=== PATIENT | female | born 1985 | race Caucasian/White ===

== ENCOUNTER → 2017-02-09 | Outpatient (CLI) | payer OTHER ==
[~2017-02-09] MED LIST: ACET50TA PO; IBUP600T26 PO; LANSOIN TOP; MOM30SS PO; PRENCAP PO; ZOLO50TA PO
--- NOTE | 2017-02-09 17:58 | REP ---
Clinical: Trauma. Technique: AP, lateral, bilateral oblique views left foot . Findings: The osseous structures and joint spaces are intact and normal. There is no evidence for acute fracture or dislocation. Surrounding soft tissues are unremarkable. No subcutaneous emphysema or radiodense foreign body. Impression: Normal examination. No acute fracture or dislocation. Signed by Jose Guadalupe Tyson MD 02/09/2017 05:50 P
--- NOTE | 2017-02-09 17:59 | REP ---
Clinical: Trauma. Injury . Technique: AP, lateral, bilateral oblique views left ankle . Findings: No acute fracture or dislocation. Skeletal structures and joint spaces are intact and normal. Ankle mortise appears stable. No subcutaneous emphysema or radiodense foreign body. Impression: Normal left ankle radiograph series. No acute fracture or dislocation. Signed by Jose Guadalupe Tyson MD 02/09/2017 05:51 P
== END ==
LOC: M RAD 17:14
PROVIDERS: ATTEND Physician Assistant Medical
DX: M25.572 Pain in left ankle and joints of left foot (principal)

== ENCOUNTER → 2017-04-19 | Outpatient (CLI) | payer OTHER, SELFPAY | LOC: M LAB 15:23 | PROVIDERS: ATTEND Advanced Practice Midwife | DX: O20.0 Threatened abortion (principal) | CPT/HCPCS: 36415; 84702; 86850; 86900; 86901; J2790 ==

== ENCOUNTER → 2018-03-20 | Outpatient (CLI) | payer OTHER | LOC: M RAD 14:31 | DX: S99.912A Unspecified injury of left ankle, initial encounter (principal); X58.XXXA Exposure to other specified factors, initial encounter; Y92.9 Unspecified place or not applicable | CPT/HCPCS: 73610 ==

== ENCOUNTER → 2018-03-24 | Outpatient (REF) | payer OTHER | LOC: M SFHCLERA 19:13 | DX: N30.01 Acute cystitis with hematuria (principal) ==

== ENCOUNTER → 2018-05-03 | Outpatient (CLI) | payer OTHER | LOC: M RAD 14:15 | DX: Z34.82 Encounter for supervision of other normal pregnancy, second trimester (principal); Z3A.11 11 weeks gestation of pregnancy | CPT/HCPCS: 76801 ==

== ENCOUNTER → 2018-06-19 | Outpatient (CLI) | payer OTHER | LOC: M RAD 13:25 | DX: Z36.89 Encounter for other specified antenatal screening (principal); Z3A.18 18 weeks gestation of pregnancy | CPT/HCPCS: 76811 ==

== ENCOUNTER → 2018-08-30 | Outpatient (CLI) | payer OTHER ==
[2018-08-30 13:15] LABS: BASO # 0.1 10^3/uL (0.0-0.2); BASO % 0.7 % (0.0-1.0); EOS # 0.3 10^3/uL (0.0-0.50); EOS % 2.6 % (0.0-3.0); HEMATOCRIT 24.5 % (36.0-47.0); HEMOGLOBIN 7.3 g/dl (12.0-15.5); IMMATURE GRANULOCYTE # 0.1 10^3/uL (0-0); IMMATURE GRANULOCYTE % 0.5 % (0-3.0); LYMPH # 1.2 10^3/uL (1.5-4.5); LYMPH % 11.4 % (24.0-44.0); MEAN CORPUSCULAR HEMOGLOBIN 21.4 pg (27.0-33.0); MEAN CORPUSCULAR HGB CONC 29.8 g/dl (32.0-36.5); MEAN CORPUSCULAR VOLUME 71.8 fl (80.0-96.0); MONO # 0.7 10^3/uL (0.0-0.8); MONO % 7.3 % (0.0-5.0); NEUTROPHILS # 7.9 10^3/uL (1.8-7.7); NEUTROPHILS % 77.5 % (36.0-66.0); PLATELET COUNT, AUTOMATED 157 10^3/uL (150-450); RED BLOOD COUNT 3.41 10^6/uL (4.00-5.40); RED CELL DISTRIBUTION WIDTH 15.9 % (11.5-14.5); WHITE BLOOD COUNT 10.2 10^3/uL (4.0-10.0)
[2018-08-30 13:33] LABS: GLUCOSE CHALLENGE TEST 1 HOUR 123 MG/DL (LESS THAN 140)
== END ==
LOC: M LAB 11:07
DX: Z34.82 Encounter for supervision of other normal pregnancy, second trimester (principal); Z3A.00 Weeks of gestation of pregnancy not specified
CPT/HCPCS: 82950

== ENCOUNTER 2018-09-24 00:15 | Outpatient (CLI) | payer OTHER ==
[2018-09-24] MEDS: LR 1,000 ML IV (01:15)
[2018-09-24 01:20] LABS: HEMATOCRIT 23.2 % (36.0-47.0); MEAN CORPUSCULAR HEMOGLOBIN 19.5 pg (27.0-33.0); MEAN CORPUSCULAR HGB CONC 28.9 g/dl (32.0-36.5); MEAN CORPUSCULAR VOLUME 67.6 fl (80.0-96.0); PLATELET COUNT, AUTOMATED 162 10^3/uL (150-450); RED BLOOD COUNT 3.43 10^6/uL (4.00-5.40); RED CELL DISTRIBUTION WIDTH 16.4 % (11.5-14.5); WHITE BLOOD COUNT 12.2 10^3/uL (4.0-10.0)
[2018-09-24 01:30] LABS: HEMOGLOBIN 6.7 g/dl (12.0-15.5)
[2018-09-24 01:59] LABS: APPEARANCE, URINE HAZY (CLEAR); BACTERIA, URINE AUTO NEGATIVE (NEGATIVE); BILIRUBIN, URINE AUTO NEGATIVE (NEGATIVE); BLOOD, URINE BLOOD NEGATIVE (NEGATIVE); COLOR, URINE YELLOW (YELLOW); GLUCOSE, URINE (UA) AUTO NEGATIVE (NEGATIVE); KETONE, URINE AUTO 1+ mg/dL (NEGATIVE); LEUKOCYTE ESTERASE, URINE AUTO TRACE (NEGATIVE); MUCUS, URINE SMALL (NEGATIVE); NITRITE, URINE AUTO POSITIVE (NEGATIVE); PROTEIN, URINE AUTO NEGATIVE (NEGATIVE); RBC, URINE AUTO 2 /HPF (0-3); SPECIFIC GRAVITY URINE AUTO 1.013 (1.002-1.035); SQUAMOUS EPITHELIAL CELL UR AU 7 /HPF (0-6); WBC, URINE AUTO 16 /HPF (0-3)
[2018-09-24] MEDS: metroNIDAZOLE (FLAGYL) 500 MG TAB PO (02:23)
[2018-09-24] MEDS: FLUCONAZOLE 50MG TABLET PO (02:23)
== END 2018-09-24 02:55 | disposition home or self-care (01) ==
LOC: M LDO 00:15
DX: O47.03 False labor before 37 completed weeks of gestation, third trimester (principal); O99.019 Anemia complicating pregnancy, unspecified trimester; O23.593 Infection of other part of genital tract in pregnancy, third trimester; O23.43 Unspecified infection of urinary tract in pregnancy, third trimester; Z3A.31 31 weeks gestation of pregnancy
CPT/HCPCS: 59025

== ENCOUNTER 2018-10-16 04:39 | Outpatient (CLI) | payer OTHER | END 2018-10-16 09:22 | disposition home or self-care (01) | LOC: M LDO 04:39 | DX: O26.893 Other specified pregnancy related conditions, third trimester (principal); Z3A.35 35 weeks gestation of pregnancy | CPT/HCPCS: 76815 ==

== ENCOUNTER 2018-11-09 11:48 | Emergency (ER) | payer OTHER ==
[~2018-11-09] VITALS: Ht 162.6 cm; Wt 71.8 kg
[2018-11-09 11:48] VITALS: BP 137/77
[~2018-11-09 11:48] MED LIST changes: +FERR325T3 PO; +MACR100C43 PO; +METR1TAB66 PO; +STOO100C PO
[2018-11-09] MEDS ORDERED: AZEL1SPR3 NARES (12:21)
== END 2018-11-09 12:44 | disposition left against medical advice (07) ==
LOC: M ED 11:48
DX: O99.89 Other specified diseases and conditions complicating pregnancy, childbirth and the puerperium (principal); H92.02 Otalgia, left ear; O62.0 Primary inadequate contractions; O99.333 Smoking (tobacco) complicating pregnancy, third trimester; F17.200 Nicotine dependence, unspecified, uncomplicated; Z88.0 Allergy status to penicillin; Z91.040 Latex allergy status; Z3A.38 38 weeks gestation of pregnancy; Z79.899 Other long term (current) drug therapy

== ENCOUNTER → 2018-11-26 | Outpatient (REF) | payer OTHER ==
[~2018-11-26] MED LIST changes: +AZEL1SPR3 NARES; +METR-201 PO; -METR1TAB66 PO
== END ==
LOC: M LAB REF 12:11
PROVIDERS: ATTEND Physician Assistant
DX: J02.9 Acute pharyngitis, unspecified (principal)

== ENCOUNTER 2020-11-14 16:40 | Outpatient (CLI) | payer OTHER, MEDICAID ==
[~2020-11-14] VITALS: Ht 162.6 cm; Wt 67.5 kg
[~2020-11-14 16:40] MED LIST changes: -ACET50TA PO; +MAPA500T17 PO; -METR-201 PO; +METR-265 PO; +MM S100C PO; -STOO100C PO
[2020-11-14 17:03] VITALS: BP 127/70
[2020-11-14 18:22] VITALS: BP 126/70
[2020-11-14] MEDS ORDERED: metroNIDAZOLE (FLAGYL) 500MG TABLET PO ONE (19:45)
[2020-11-14] MEDS ORDERED: DIFL150T PO (19:46)
[2020-11-14] MEDS ORDERED: METR-265 PO (19:46)
--- NOTE | 2020-11-14 20:12 | IPNPDOC ---
Text Note Date of Service The patient was seen on 11/14/20. NOTE Outpatient Subjective: Carmencita is a 35 y/o by 2nd trimester ultrasound, PATY 12/01/20. She started care at [facility] in the 2nd trimester at 20.1 weeks. She has had an uncomplicated . She presented to Labor and Delivery today with a c/o a gush of fluid this evening and then no further leaking of fluid. She reports the fluid to be milky white in color, no odor. Denies vaginal itching, burning. Reports having BH contractions frequently but nothing painful or out of her normal. Denies vaginal bleeding, and reports active movement. Obstetrical/[employer] hx.: frequent yeast infections, x4, SAB x2, chlamydia in 2018 Medical hx: Anxiety, depression (suicide attempt in 2008), asthma, alcoholism (sober for 7.5 years), GERD, gastric ulcer Surgical hx: Wrist Reset 1997 Family hx: Father and Mother: alcoholism, COPD, HTN, Cirrhosis, Depression, Anxiety Social hx: Single, current smoker, denies current alcohol and drug use Objective: General: Alert and oriented x3. Respiratory: Regular rate, no accessory muscle use. Abdomen: Gravid, soft, non tender, not distended. Fetus: 135bpm baseline, moderate variability, positive 15x15 accelerations, no decelerations, Category 1 Uterus: Contractions every 3-15 minutes, lasting 50-70 seconds, mild on palpation, resting tone soft Pelvic: Speculum exam revealed frothy white discharge in vaginal vault, well rugated vagina, Cervical os pink and no fluid appearing to be leaking from external os. Nitrazine negative, whiff test positive, positive clue cells seen on slide. No yeast buds or hyphae. No trichomonads. No ferning seen. SVE: Closed/Thick/High by GRAEME Arriola Bedside Ultrasound: AMMY 15.1, active movement seen, anterior fundal placenta, cephalic presentation Extremities: No edema. Negative calf tenderness. Assessment: Bacterial Vaginosis, IUP at 37.4weeks, Not in active labor, No SROM. Plan: NST Bedside U/S: see results above Flagyl 500mg BID for 7 days, starting with 1 dose prior to discharge Discharge home on labor precautions. Reviewed signs of labor, [facility] reviewed, access to care, and continue with appointments as scheduled with Dr. Chi. VS,Fishbone, I+O VS, Fishbone, I+O Vital Signs Date Time Temp Pulse Resp B/P (MAP) Pulse Ox O2 Delivery O2 Flow Rate FiO2 11/14/20 18:22 111 18 126/70 (88) 11/14/20 17:31 98.5 SHARON MANCERA CNM Nov 14, 2020 20:12
== END 2020-11-14 20:08 | disposition home or self-care (01) ==
LOC: M LDO 16:40
PROVIDERS: ATTEND Advanced Practice Midwife
DX: O23.593 Infection of other part of genital tract in pregnancy, third trimester (principal); Z3A.37 37 weeks gestation of pregnancy; Z91.040 Latex allergy status; Z88.0 Allergy status to penicillin

== ENCOUNTER 2021-04-28 03:39 | Emergency (ER) | payer OTHER ==
[~2021-04-28] VITALS: Ht 162.6 cm; Wt 58.2 kg
[~2021-04-28 03:39] MED LIST changes: +DIFL150T PO
[2021-04-28] MEDS ORDERED: CLEO300C2 PO (06:49)
[2021-04-28 06:51] VITALS: BP 127/75
== END 2021-04-28 06:53 | disposition home or self-care (01) ==
LOC: M ED 03:39
DX: S01.511A Laceration without foreign body of lip, initial encounter (principal); K03.81 Cracked tooth; Y04.2XXA Assault by strike against or bumped into by another person, initial encounter; Y92.9 Unspecified place or not applicable; Y93.9 Activity, unspecified; Y99.9 Unspecified external cause status; F32.9 Major depressive disorder, single episode, unspecified; F41.9 Anxiety disorder, unspecified; Z88.0 Allergy status to penicillin; Z91.040 Latex allergy status

== ENCOUNTER 2024-10-07 11:19 | Emergency (ER) | payer OTHER ==
[~2024-10-07] VITALS: Ht 162.6 cm; Wt 71.5 kg
[~2024-10-07 11:19] MED LIST changes: +CLEO300C2 PO
[2024-10-07 11:25] VITALS: O2SAT 100
[2024-10-07] MEDS ORDERED: LEVO1TAB39 PO (12:45)
[2024-10-07 13:12] VITALS: BP 138/85; TEMP 97.6
== END 2024-10-07 13:14 | disposition home or self-care (01) ==
LOC: M ED 11:19
DX: H05.012 Cellulitis of left orbit (principal); J45.909 Unspecified asthma, uncomplicated; F17.200 Nicotine dependence, unspecified, uncomplicated; Z88.0 Allergy status to penicillin; Z91.040 Latex allergy status; Z79.899 Other long term (current) drug therapy